=== PATIENT | female | born 1995 | race Caucasian/White ===

== ENCOUNTER 2019-04-01 12:55 | Emergency (ER) | payer OTHER ==
--- NOTE | 2019-04-01 13:35 | ERPHSYRPT ---
- History of Present Illness Time Seen by Provider: 04/01/19 13:25 Source: patient Exam Limitations: clinical condition Patient Subjective Stated Complaint: states has had uti symptoms for five days. has had vomiting every hour since 0400 today. also having lower back pain. Triage Nursing Assessment: ambulated to room per self. skin w/d, color normal, resp nonlabored. patient talkative, fast speech. was able to urinate. urine clear yellow. Physician History: PATIENT WITH A HISTORY OF ANXIETY DISORDER ONSET OF EMESIS X 4 DAYS SINCE MEDICATION RAN OUT 2 WEEKS AGO. PATIENT ALSO COMPLAINS OF FREQUENCY, DYSURIA AND URGENCY FOR 5 DAYS. DENIES HEMATURIA, FLANK PAIN, FEVER CHILLS OR ABDOMINAL PAIN. Timing/Duration: day(s) Activites at Onset: none Quality: aching (FLANK PAIN) Onset Location: right flank Pain Radiation: none Severity of Pain-Max: mild Severity of Pain-Current: mild Sexual intercourse history: non-contributory Modifying Factors: Improves With: urinating, vomiting Associated Symptoms: urinary frequency Allergies/Adverse Reactions: iodine Allergy (Verified 04/01/19 13:25) Hx Tetanus, Diphtheria Vaccination/Date Given: No Hx Influenza Vaccination/Date Given: Yes Hx Pneumococcal Vaccination/Date Given: No - Review of Systems Constitutional: No Fever, No Chills Eyes: No Symptoms Ears, Nose, & Throat: No Symptoms Respiratory: No Symptoms, No Cough, No Dyspnea Cardiac: No Symptoms, No Chest Pain, No Edema, No Syncope Abdominal/Gastrointestinal: Nausea, Vomiting, No Abdominal Pain, No Diarrhea Genitourinary Symptoms: Dysuria, Frequency, Flank Pain Musculoskeletal: No Symptoms, No Back Pain, No Neck Pain Skin: No Rash Neurological: No Dizziness, No Focal Weakness, No Sensory Changes Psychological: No Symptoms Endocrine: No Symptoms All Other Systems: Reviewed and Negative - Past Medical History Pertinent Past Medical History: Yes Psycho-Social History: Anxiety, Depression Other Medical History: chronic back pain - Past Surgical History Past Surgical History: No - Social History Smoking Status: Never smoker Exposure to second hand smoke: No Drug Use: none Patient Lives Alone: No - Female History Hx Last Menstrual Period: one week ago Hx Now: No - Nursing Vital Signs Nursing Vital Signs: Initial Vital Signs Temperature 98.6 F 04/01/19 13:01 Pulse Rate 90 04/01/19 13:01 Respiratory Rate 16 04/01/19 13:01 Blood Pressure 115/91 04/01/19 13:01 O2 Sat by Pulse Oximetry 96 04/01/19 13:01 Pain Scale Pain Intensity 0 - Physical Exam General Appearance: no apparent distress, alert Eye Exam: PERRL/EOMI, eyes nml inspection Ears, Nose, Throat Exam: normal ENT inspection, TMs normal, pharynx normal, moist mucous membranes Neck Exam: normal inspection, non-tender, supple, full range of motion Respiratory Exam: normal breath sounds, lungs clear, No respiratory distress Cardiovascular Exam: regular rate/rhythm, normal heart sounds, normal peripheral pulses Gastrointestinal/Abdomen Exam: soft, No tenderness, No mass Back Exam: normal inspection, normal range of motion, CVA tenderness (RIGHT MODERATE CVA TENDERNESS), No vertebral tenderness Extremity Exam: normal inspection, normal range of motion, pelvis stable Neurologic Exam: alert, oriented x 3, cooperative, cook tortilla II-XII nml as tested, normal mood/affect, sensation nml, No motor deficits Skin Exam: normal color, warm, dry Lymphatic Exam: No adenopathy SpO2 Interpretation: normal SpO2: 96 Ordered Tests: Active Orders 24 hr Category Date Time Status CULTURE,URINE Stat Lab 04/01/19 13:58 Received HCG,QUALITATIVE URINE Stat Lab 04/01/19 13:58 Completed UA W/RFX UR CULTURE Stat Lab 04/01/19 13:58 Completed Urine Triage Profile Stat Lab 04/01/19 13:58 Completed Medication Summary Discontinued Medications Generic Name Dose Route Start Last Admin Trade Name Freq PRN Reason Stop Dose Admin Sodium Chloride 1,000 mls @ 999 mls/hr 04/01/19 13:39 04/01/19 13:49 Sodium Chloride 0.9% 1000 Ml IV 04/01/19 14:39 999 mls/hr .Q1H1M STA Administration Sodium Chloride Confirm 04/01/19 13:43 Sodium Chloride 0.9% 1000 Ml Administered 04/01/19 13:44 Dose 1,000 mls @ ud .ROUTE .STK-MED ONE Ceftriaxone Sodium/Dextrose 1 g in 50 mls @ 100 mls/hr 04/01/19 14:34 14:39 Rocephin 1 Gm-D5w 50 Ml Bag IV 04/01/19 15:03 100 mls/hr STAT STA 100 mls/hr Administration Ceftriaxone Sodium/Dextrose Confirm 04/01/19 14:38 Rocephin 1 Gm-D5w 50 Ml Bag Administered 04/01/19 14:39 Dose 1 g in 50 mls @ ud IV .STK-MED ONE Ketorolac Tromethamine 30 mg 04/01/19 14:36 04/01/19 14:39 Toradol 30 Mg Injection IV 04/01/19 14:37 30 mg STAT ONE Administration Ketorolac Tromethamine Confirm 04/01/19 14:38 Toradol 30 Mg Injection Administered 04/01/19 14:39 Dose 30 mg .ROUTE .STK-MED ONE Lab/Rad Data: Laboratory Results 04/01/19 04/01/19 04/01/19 Range/Units 13:58 13:58 13:58 Urine Color YELLOW (YELLOW) Urine Appearance SLIGHTLY CLOUDY (CLEAR) Urine pH 8.0 (5-6) Ur Specific [place] 1.004 (1.005-1.025) Urine Protein NEGATIVE (Negative) Urine Ketones NEGATIVE (NEGATIVE) Urine Blood SMALL (0-5) Jose R/ul Urine Nitrite NEGATIVE (NEGATIVE) Urine Bilirubin NEGATIVE (NEGATIVE) Urine Urobilinogen NEGATIVE (0-1) mg/dL Ur Leukocyte Esterase LARGE (NEGATIVE) Urine WBC (Auto) 51-100 (0-5) /HPF Urine RBC (Auto) 0-2 (0-2) /HPF U Epithel Cells (Auto) RARE (FEW) /HPF Urine Bacteria (Auto) FEW (NEGATIVE) /HPF Urine Culture Reflexed YES (NO) Urine Glucose NEGATIVE (NEGATIVE) mg/dL Urine HCG, Qual NEGATIVE (Negative) Urine Opiates Level NEGATIVE (NEGATIVE) Ur Methadone NEGATIVE (NEGATIVE) Urine Barbiturates NEGATIVE (NEGATIVE) Ur Phencyclidine (PCP) NEGATIVE (NEGATIVE) Urine Amphetamine NEGATIVE (NEGATIVE) U Benzodiazepine Level NEGATIVE (NEGATIVE) Urine Cocaine NEGATIVE (NEGATIVE) Urine Marijuana (THC) POSITIVE (NEGATIVE) - Progress Progress Note: 04/01/19 14:24 IV NORMAL SALINE 1 LITER/HR X 2 ZOFRAN 4MG IV 04/01/19 14:34 , UA + FOR WBC 50-100, ADMINISTERED ROCEPHIN 1GM IVPB 04/01/19 15:19, PATIENT HAD NO EPISODES OF NAUSEA, DRY HEAVES OR EMESIS WHILE IN EMERGENCY Blood Culture(s) Obtained: No Antibiotics given: No - Departure Departure Disposition: Home Clinical Impression: URINARY TRACT INFECTION Condition: Stable Critical Care Time: No Referrals: DOCTOR,NO FAMILY [Primary Care Provider] - Additional Instructions: DRINK PLENTY OF FLUIDS. ANTIBIOTIC BACTRIM DS TWICE DAILY FOR 10 DAYS. PYRIDIUM 100MG AFTER MEALS FOR 2 DAYS FOR TREATMENT OF BURING DISCOMFORT. CONSULT YOUR PRIMARY CARE PROVIDER FOR FOLLOWUP. Prescriptions: Phenazopyridine HCl [Pyridium] 100 mg PO PC #6 tablet Smz/Tmp Ds Tablet [Bactrim Ds Tablet] 1 udtab PO BID #20 tablet
[2019-04-01] MEDS ORDERED: Sodium Chloride 0.9% 1000 ML 1,000 ML IV STA (13:39)
[2019-04-01] MEDS ORDERED: Sodium Chloride 0.9% 1000 ML 1,000 ML ONE (13:43)
[2019-04-01 14:27] LABS: Appearance SLIGHTLY CLOUDY (CLEAR); Bacteria FEW /HPF (NEGATIVE); Bilirubin NEGATIVE (NEGATIVE); Blood SMALL Ery/ul (0-5); Epithelial Cells RARE /HPF (FEW); Glucose NEGATIVE (NEGATIVE); Ketones NEGATIVE (NEGATIVE); Leukocyte Esterase LARGE (NEGATIVE); Nitrite NEGATIVE (NEGATIVE); Protein,Urine Dip NEGATIVE (Negative); RBC 0-2 /HPF (0-2); Specific Gravity 1.004 (1.005-1.025); Urobilinogen NEGATIVE mg/dL (0-1); WBC 51-100 /HPF (0-5)
[2019-04-01 14:34] LABS: Amphetamine,Urine NEGATIVE (NEGATIVE); Barbiturate,Urine NEGATIVE (NEGATIVE); Benzodiazepine,Urine NEGATIVE (NEGATIVE); Cocaine,Urine NEGATIVE (NEGATIVE); Methadone,Urine NEGATIVE (NEGATIVE); Opiate,Urine NEGATIVE (NEGATIVE); PCP,Urine NEGATIVE (NEGATIVE); THC,Urine POSITIVE (NEGATIVE)
[2019-04-01] MEDS ORDERED: ROCEPHIN 1 Gm-D5w 50 ml Bag** 1 G/50 ML IVPB IV STA (14:34)
[2019-04-01] MEDS ORDERED: TORAdol 30 mg Injection IV ONE (14:36)
[2019-04-01] MEDS ORDERED: TORAdol 30 mg Injection ONE (14:38)
[2019-04-01] MEDS ORDERED: ROCEPHIN 1 Gm-D5w 50 ml Bag** 1 G/50 ML IVPB IV ONE (14:38)
[2019-04-01 15:21] VITALS: BP 132/77; PULSE 90; O2SAT 95
== END 2019-04-01 15:43 | disposition home or self-care (01) ==
LOC: ED 12:55
DX: N39.0 Urinary tract infection, site not specified (principal); R10.9 Unspecified abdominal pain
CPT/HCPCS: 36000; 80307; 81001; 84703; 87077; 87086; 87186; 96360; 96365; 96374; 96375; 99284; J0696; J1885